=== PATIENT | female | born 1945 | race Caucasian/White ===

== ENCOUNTER → 2016-10-09 | Outpatient (CLI) | payer MEDICARE ==
[~2016-10-09] MED LIST: AMLO2.5T PO; ASPI81TA2 PO; BUDE10.2 IH; CLOP75TA PO; DICL100G7 TP; ESCI10TA PO; LISI2.5T PO; OMEP20CA9 PO; PRAV10TA2 PO; PROAIR HFA8.5 GM IH; REGADENOSON 0.4 MG/5 ML DISP.SYRIN. IV ONE; TIOT18CA IH; ZOLP5TAB5 PO
== END | disposition home or self-care (01) ==
LOC: PCVCIMAG 08:40
PROVIDERS: ATTEND Internal Medicine Cardiovascular Disease
DX: I25.10 Atherosclerotic heart disease of native coronary artery without angina pectoris (principal); J44.9 Chronic obstructive pulmonary disease, unspecified; I73.9 Peripheral vascular disease, unspecified; Z95.5 Presence of coronary angioplasty implant and graft; Z82.49 Family history of ischemic heart disease and other diseases of the circulatory system
CPT/HCPCS: 78452; 93017; A9500; J2785

== ENCOUNTER → 2017-01-10 | Outpatient (CLI) | payer MEDICARE ==
[~2017-01-10] MED LIST changes: +ASPI-630 PO; -ASPI81TA2 PO; +DICL100G18 TP; -DICL100G7 TP; -ESCI10TA PO; +ESCITALOPRAM OX10 MG PO; -REGADENOSON 0.4 MG/5 ML DISP.SYRIN. IV ONE
--- NOTE | 2017-01-10 16:09 | PCVCIMAG ---
EXAM: BILATERAL LOWER EXTREMITY ARTERIAL DUPLEX INDICATION: Peripheral Arterial Disease. Leg pain. FINDINGS: Right Leg: Satisfactory arterial waveforms in the common femoral and profunda femoral arteries. Moderate elevation of systolic velocity to 295 cm/s in the common femoral artery consistent with 50% stenosis. Good arterial waveforms in the superficial femoral artery and popliteal artery with previous superficial femoral artery stent maintaining good patency. The anterior tibial and peroneal arteries are patent. Occlusion of the mid/distal posterior tibial artery. Left Leg: Moderate elevation of the systolic velocity in the common femoral artery to 313 cm/s consistent with 50% stenosis. Good arterial waveforms in the superficial femoral artery and popliteal artery with previous superficial femoral artery stent maintaining good patency. The anterior tibial and peroneal arteries are patent. Occlusion of the posterior tibial artery is unchanged. IMPRESSION: 50% restenosis right common femoral artery not felt to be flow-limiting. Previous right superficial femoral artery stent maintaining good patency. 50% restenosis left common femoral artery not felt to be flow-limiting. Previous left superficial femoral artery stent maintaining good patency. LOC:[id number]
--- NOTE | 2017-01-10 16:12 | PCVCIMAG ---
EXAM: NONINVASIVE ARTERIAL EXAMINATION OF BOTH LOWER EXTREMITIES INCLUDING PRE AND POST EXERCISE PRESSURE MEASUREMENTS AND DOPPLER WAVEFORMS INDICATION: Peripheral Arterial Disease. Leg pain. FINDINGS: Right Brachial: 104 mm Hg. Right Dorsalis Pedis: 111 mm Hg. Right Posterior Tibial: Not obtainable . Right KAROLYN = 1.07. Left Brachial: 102 mm Hg. Left Dorsalis Pedis: 115 mm Hg. Left Posterior Tibial: Not obtainable. Left KAROLYN = 1.11. Post Exercise: Right Brachial 110 mm Hg. Right dorsalis pedis: 70 mm Hg. Left dorsalis pedis: 93 mm Hg. Right KAROLYN = 0.64. Left KAROLYN = 0.85. IMPRESSION: No resting ischemia in the right lower extremity. Mild/moderate exercise induced ischemia in the right lower extremity. No resting ischemia in the left lower extremity. Minimal exercise induced ischemia in the left lower extremity. LOC:[id number]
== END | disposition home or self-care (01) ==
LOC: PCVCIMAG 14:05
PROVIDERS: ATTEND Nuclear Medicine Nuclear Cardiology
DX: I73.9 Peripheral vascular disease, unspecified (principal); I77.89 Other specified disorders of arteries and arterioles; I25.10 Atherosclerotic heart disease of native coronary artery without angina pectoris; I12.9 Hypertensive chronic kidney disease with stage 1 through stage 4 chronic kidney disease, or unspecified chronic kidney disease; N18.9 Chronic kidney disease, unspecified; J44.9 Chronic obstructive pulmonary disease, unspecified; E78.00 Pure hypercholesterolemia, unspecified; I65.23 Occlusion and stenosis of bilateral carotid arteries; Z90.49 Acquired absence of other specified parts of digestive tract; Z95.828 Presence of other vascular implants and grafts; Z90.710 Acquired absence of both cervix and uterus; Z90.722 Acquired absence of ovaries, bilateral; Z87.891 Personal history of nicotine dependence; Z79.82 Long term (current) use of aspirin; Z79.899 Other long term (current) drug therapy; Z88.2 Allergy status to sulfonamides
CPT/HCPCS: 93923; 93925; G0463; 93924

== ENCOUNTER → 2017-07-31 | Outpatient (CLI) | payer MEDICARE | END | disposition home or self-care (01) | LOC: PCVCIMAG 08:49 | DX: I73.9 Peripheral vascular disease, unspecified (principal); I77.9 Disorder of arteries and arterioles, unspecified; I25.10 Atherosclerotic heart disease of native coronary artery without angina pectoris; I10 Essential (primary) hypertension; J44.9 Chronic obstructive pulmonary disease, unspecified; I65.23 Occlusion and stenosis of bilateral carotid arteries; M79.605 Pain in left leg; M79.604 Pain in right leg; E78.00 Pure hypercholesterolemia, unspecified; Z87.891 Personal history of nicotine dependence | CPT/HCPCS: 93880; 93923; 93925; G0463 ==

== ENCOUNTER → 2018-05-22 | Outpatient (CLI) | payer MEDICARE ==
[~2018-05-22] MED LIST changes: +ALBU2.5V8 IH; -AMLO2.5T PO; +AMLO2.5T3 PO; -PROAIR HFA8.5 GM IH
--- NOTE | 2018-05-22 09:10 | PCVCIMAG ---
APPROVED REPORT Indications Stenosis Doppler Spectral Velocity Analysis PSV / EDVPSV / EDV ECA (R) 123 / 11 cm/sECA (L) 70 / 9 cm/s dICA (R) 68 / 16 cm/sdICA (L) 43 / 11 cm/s Guillermo (R) 58 / 12 cm/smICA (L) 73 / 15 cm/s pICA (R) 113 / 18 cm/spICA (L) 68 / 20 cm/s Bulb (R) 68 / 16 cm/sBulb (L) 71 / 11 cm/s dCCA (R) 65 / 13 cm/sdCCA (L) 89 / 13 cm/s mCCA (R) 70 / 10 cm/smCCA (L) 84 / 14 cm/s Vert (R) 77 / 11 cm/sVert (L) 27 / 4 cm/s ICA/CCA 1.74ICA/CCA 0.82 Findings The right carotid bulb has moderate plaque. The right proximal internal carotid artery shows 40-50% stenosis. The right common carotid artery shows no significant stenosis. The right external carotid artery shows no significant stenosis. The left carotid bulb has mild plaque. The left proximal internal carotid artery shows no significant stenosis. The left common carotid artery shows no significant stenosis. The left external carotid artery shows no significant stenosis. Conclusion 1. Right internal carotid artery stenosis (40-50%) 2. Left internal carotid artery plaquing 3. Antegrade vertebral flow
--- NOTE | 2018-05-22 10:09 | PCVCIMAG ---
EXAM: NONINVASIVE ARTERIAL EXAMINATION OF BOTH LOWER EXTREMITIES INCLUDING PRE AND POST EXERCISE PRESSURE MEASUREMENTS AND DOPPLER WAVEFORMS INDICATION: Peripheral Arterial Disease. Leg pain. FINDINGS: Right Brachial: 138 mm Hg. Right Dorsalis Pedis: 134 mm Hg. Right Posterior Tibial: 126 mm Hg. Right KAROLYN = 0.97. Left Brachial: 136 mm Hg. Left Dorsalis Pedis: 135 mm Hg. Left Posterior Tibial: 131 mm Hg. Left KAROLYN = 0.98. Post Exercise: Right Brachial 157 mm Hg. Right Dorsalis Pedis: 83 mm Hg. Left Dorsalis Pedis: 93 mm Hg. Right KAROLYN = 0.53. Left KAROLYN = 0.59. IMPRESSION: No resting ischemia in the right lower extremity. Moderate exercise induced ischemia in the right lower extremity. No resting ischemia in the left lower extremity. Moderate exercise induced ischemia in the left lower extremity. LOC:[id number]
--- NOTE | 2018-05-22 10:14 | PCVCIMAG ---
EXAM: BILATERAL LOWER EXTREMITY ARTERIAL DUPLEX INDICATION: Peripheral Arterial Disease. Leg pain. FINDINGS: Right Le-60% stenosis mid common femoral artery. Profunda femoral artery is patent. Superficial femoral artery and popliteal artery are patent. Previous superficial femoral artery stents maintaining satisfactory patency. The anterior tibial, peroneal, and posterior tibial arteries are patent. Left Le-60% stenosis mid common femoral artery. Profunda femoral artery is patent. Superficial femoral artery and popliteal artery are patent. Previous superficial femoral artery stents maintaining satisfactory patency. The anterior tibial, peroneal, and posterior tibial arteries are patent. IMPRESSION: 50-60% stenosis [place] right common femoral artery is unchanged since prior study. Otherwise no flow limiting stenosis in the right lower extremity. 50-60% stenosis [place] left common femoral artery is unchanged since prior study. Otherwise no flow limiting stenosis in the left lower extremity. LOC:[id number]
== END | disposition home or self-care (01) ==
LOC: PCVCIMAG 08:17
PROVIDERS: ATTEND Nuclear Medicine Nuclear Cardiology
DX: I65.23 Occlusion and stenosis of bilateral carotid arteries (principal); I25.10 Atherosclerotic heart disease of native coronary artery without angina pectoris; I10 Essential (primary) hypertension; E78.00 Pure hypercholesterolemia, unspecified; J44.9 Chronic obstructive pulmonary disease, unspecified; I73.9 Peripheral vascular disease, unspecified; E78.5 Hyperlipidemia, unspecified; Z79.82 Long term (current) use of aspirin; Z87.891 Personal history of nicotine dependence; Z72.89 Other problems related to lifestyle; Z79.899 Other long term (current) drug therapy; Z96.641 Presence of right artificial hip joint
CPT/HCPCS: 93880; 93924; 93925; G0463; 94640; 94760

== ENCOUNTER → 2018-12-17 | Outpatient (CLI) | payer MEDICARE ==
[~2018-12-17] MED LIST changes: -AMLO2.5T3 PO; +AMLO2.5T5 PO; +OMEP20CA10 PO; -OMEP20CA9 PO
== END ==
LOC: PCVCCLINIC 09:50
PROVIDERS: ATTEND Internal Medicine Cardiovascular Disease
DX: I25.10 Atherosclerotic heart disease of native coronary artery without angina pectoris (principal); I10 Essential (primary) hypertension; E78.00 Pure hypercholesterolemia, unspecified; Z79.82 Long term (current) use of aspirin
CPT/HCPCS: 36415

== ENCOUNTER → 2019-02-12 | Outpatient (CLI) | payer MEDICARE ==
--- NOTE | 2019-02-12 09:02 | PCVCIMAG ---
EXAM: NONINVASIVE ARTERIAL EXAMINATION OF BOTH LOWER EXTREMITIES INCLUDING PRE AND POST EXERCISE PRESSURE MEASUREMENTS AND DOPPLER WAVEFORMS INDICATION: Peripheral Arterial Disease. Leg pain. FINDINGS: Right Brachial: 166 mm Hg. Right Dorsalis Pedis: 129 mm Hg. Right Posterior Tibial: 127 mm Hg. Right KAROLYN = 0.78. Left Brachial: 153 mm Hg. Left Dorsalis Pedis: 160 mm Hg. Left Posterior Tibial: 138 mm Hg. Left KAROLYN = 0.96. Post Exercise: Right Brachial 181 mm Hg. Right Dorsalis Pedis: 54 mm Hg. Left Dorsalis Pedis: 107 mm Hg. Right KAROLYN = 0.30. Left KAROLYN = 0.59. IMPRESSION: Mild resting ischemia in the right lower extremity. Severe exercise induced ischemia in the right lower extremity. No resting ischemia in the left lower extremity. Moderate exercise induced ischemia in the left lower extremity. LOC:[id number]
--- NOTE | 2019-02-12 11:23 | PCVCIMAG ---
EXAM: BILATERAL LOWER EXTREMITY ARTERIAL DUPLEX INDICATION: Peripheral Arterial Disease. Leg pain. FINDINGS: Right Le% restenosis common femoral artery. Profunda femoral artery is patent. Superficial femoral and popliteal arteries are patent including prior superficial femoral artery stent. Anterior tibial, peroneal, and posterior tibial arteries are patent. Left Le% restenosis common femoral artery. Profunda femoral artery is patent. Superficial femoral and popliteal arteries are patent including prior superficial femoral artery stent. Anterior tibial, peroneal, and posterior tibial arteries are patent. IMPRESSION: Unchanged 60% stenoses in the right and left common femoral arteries at sites of prior intervention. Prior bilateral superficial femoral artery stent are maintaining satisfactory patency. LOC:[id number]
== END | disposition home or self-care (01) ==
LOC: PCVCIMAG 08:14
PROVIDERS: ATTEND Nuclear Medicine Nuclear Cardiology
DX: I73.9 Peripheral vascular disease, unspecified (principal); I25.10 Atherosclerotic heart disease of native coronary artery without angina pectoris; I12.9 Hypertensive chronic kidney disease with stage 1 through stage 4 chronic kidney disease, or unspecified chronic kidney disease; N18.9 Chronic kidney disease, unspecified; I77.9 Disorder of arteries and arterioles, unspecified; E78.00 Pure hypercholesterolemia, unspecified; J44.9 Chronic obstructive pulmonary disease, unspecified; Z87.891 Personal history of nicotine dependence; Z79.82 Long term (current) use of aspirin; Z79.899 Other long term (current) drug therapy; Z88.8 Allergy status to other drugs, medicaments and biological substances; Z72.89 Other problems related to lifestyle
CPT/HCPCS: 93924; 93925; G0463